=== PATIENT | female | born 1965 | race Caucasian/White ===

== ENCOUNTER 2017-12-10 16:16 | Emergency (ER) | payer MEDICAID ==
[~2017-12-10] VITALS: Ht 165.1 cm; Wt 49.8 kg
[2017-12-10 16:18] VITALS: BP 144/91
[2017-12-10] MEDS ORDERED: DIPH,PERTUSS(ACELL),TET VAC/PF 0.5 ML IM-VACC ONE ×2 (17:00→17:09)
[2017-12-10] MEDS ORDERED: BACITRACIN ZINC OINT 500U/GM, 0.9 GM ONE (17:09)
== END 2017-12-10 18:26 | disposition home or self-care (01) ==
LOC: ED 17:00
DX: S60.511A Abrasion of right hand, initial encounter (principal); K21.9 Gastro-esophageal reflux disease without esophagitis; I10 Essential (primary) hypertension; F17.200 Nicotine dependence, unspecified, uncomplicated; W55.01XA Bitten by cat, initial encounter; Y93.89 Activity, other specified; Y92.009 Unspecified place in unspecified non-institutional (private) residence as the place of occurrence of the external cause; Y99.8 Other external cause status
CPT/HCPCS: 90471; 90715